=== PATIENT | female | born 1950 | race Caucasian/White ===

== ENCOUNTER 2022-04-07 10:42 | Day surgery (SDC) | payer OTHER ==
[~2022-04-07] VITALS: Ht 167.6 cm; Wt 63.2 kg
[~2022-04-07 10:42] MED LIST: ALLER-TEC D 5-1 EACH PO; ARTIFICIAL TEAR15 M2 TOP; GLUC500; IBUP800 PO; METR70GEL VAG; METRONIDAZOLE60 GM TP; Penlac6.6 ML TP; Prednisone20 MG PO; TURMERIC500 M2 PO
--- NOTE | 2022-04-07 12:29 | NUR ---
04/07/22 1229 Guero Garcia EPI 1MG/ML USED TO SOAK PLEDGETTS USED DURING CASE.
== END 2022-04-07 13:32 | disposition home or self-care (01) ==
LOC: ORSCSDS 10:42
PROVIDERS: Otolaryngology
PROC: 0CBM8ZX Excision of Pharynx, Via Natural or Artificial Opening Endoscopic, Diagnostic (ICD-10-PCS; principal; 2022-04-07 12:00)
PROC: 0CBR8ZX Excision of Epiglottis, Via Natural or Artificial Opening Endoscopic, Diagnostic (ICD-10-PCS; principal; 2022-04-07 12:00)
DX: J38.7 Other diseases of larynx (principal); G47.33 Obstructive sleep apnea (adult) (pediatric); Z87.891 Personal history of nicotine dependence; F41.9 Anxiety disorder, unspecified
CPT/HCPCS: 88304; J1100; J2250; J2370; J2405; J2704; J3010; J7120

== ENCOUNTER 2024-01-18 06:08 | Day surgery (SDC) | payer OTHER ==
[2024-01-18] VITALS (13 sets, daily range): BP systolic 107–136; BP diastolic 51–78
[~2024-01-18] VITALS: Ht 167.6 cm; Wt 63.0 kg
[~2024-01-18 06:08] MED LIST changes: +Estrace Vagin42.5 GM VAG; +FERROUS GLUCON324 M7 PO; +ROSACEA CREAM TOP
[2024-01-18] MEDS ORDERED: CeFAZolin Sodium 2,000 MG in NS 100 ML IV SCH (06:20)
[2024-01-18] MEDS ORDERED: Lactated Ringer's 1,000 ML IV SCH ×2 (06:20→09:05)
[2024-01-18] MEDS ORDERED: propofoL 20 ML IV ONE (06:56)
[2024-01-18] MEDS ORDERED: Lidocaine HCl 2% 20 ML MDV ONE (06:56)
[2024-01-18] MEDS ORDERED: FentaNYL Citrate 50 MCG/ML 2 ML Injection ONE (06:57)
[2024-01-18] MEDS ORDERED: Lidocaine HCl 1% 5 ML SYR INJ ONE (07:05)
[2024-01-18] MEDS ORDERED: FentaNYL Citrate 50 MCG/ML 2 ML Injection IV PRN ×2 (07:05→07:10)
[2024-01-18] MEDS ORDERED: Midazolam HCl 1MG / ML 2ML Vial IV ONE (07:05)
[2024-01-18] MEDS ORDERED: HYDROmorphone HCl/Pf 1MG SYR IV PRN ×2 (07:10→09:05)
[2024-01-18] MEDS ORDERED: Ondansetron HCl 2 MG / ML 2ML Vial IV PRN ×2 (07:10→09:05)
[2024-01-18] MEDS ORDERED: EpiNEPhrine 1 MG/1 ML 1ML Vial ONE (07:11)
[2024-01-18] MEDS ORDERED: Bupivacaine 0.5% HCl 5 MG/ML 30MLVIAL ONE (07:11)
[2024-01-18] MEDS ORDERED: Lidocaine 1%-Epineph 1:100000 20 ML MDV ONE (07:14)
[2024-01-18] MEDS ORDERED: ePHEDrine Sulfate 50 MG/ML 1ML Injection ONE (07:36)
[2024-01-18] MEDS ORDERED: Phenylephrine HCl 100 MCG/ML-NS 10MLSYR (1MG/10ML) ONE (07:36)
[2024-01-18] MEDS ORDERED: Dexamethasone Sod Phos 10 MG/ML 1ML VIAL ONE (07:44)
[2024-01-18] MEDS ORDERED: Ondansetron HCl 2 MG / ML 2ML Vial ONE (07:44)
[2024-01-18] MEDS ORDERED: Naloxone HCl 0.4MG / ML 1ML Vial IV PRN (09:00)
[2024-01-18] MEDS ORDERED: Metoclopramide HCl 5MG / ML 2ML Vial IV PRN (09:05)
[2024-01-18] MEDS ORDERED: Simethicone 80 MG Chew PO PRN (09:05)
[2024-01-18] MEDS ORDERED: Metoclopramide HCl 10 MG Tab PO PRN (09:05)
[2024-01-18] MEDS ORDERED: DiphenhydrAMINE HCL 25 MG Cap PO PRN (09:10)
[2024-01-18] MEDS ORDERED: OxyCODONE HCL 5 MG TAB PO PRN (09:10)
[2024-01-18] MEDS ORDERED: Acetaminophen 325 MG TABLET PO PRN (09:10)
[2024-01-18] MEDS ORDERED: Ondansetron 4 MG TAB PO PRN (09:10)
[2024-01-18] MEDS ORDERED: Ketorolac Tromethamine 15mg Vial IV PRN (09:15)
--- NOTE | 2024-01-18 09:45 | NUR ---
ARRIVAL TO SURGICAL UNIT VIA GOURNEY, EASILY STANDS TO TRANSFER TO HOSPITAL BED. SCANT BLOODY DRNG NOTED TO LINENS OF GOURNEY. PLEASANT, SOFT SPOKEN, & ORIENTED. K PAD TO BACK. ABD SOFT. LUNGS CLEAR. ESPINOZA IN PLACE, NO URINE IN BAG. DENIES N/V & DRINKS GIVEN; DECLINES SNACKS. DENIES PAIN & ONLY C/O ESPINOZA IRRIATING HER. DISCUSSED PLANS FOR ESPINOZA TO BE REMOVED 4 HOURS POST OP OR SOON IF ABLE TO COMFORTABLY AMBULATE. STATES UNDERSTANDING. SPOUSE TO ROOM.
[2024-01-18] MEDS ORDERED: Acetaminophen650 M1 PO (15:58)
--- NOTE | 2024-01-18 16:18 | NUR ---
DISCHARGE DENIES PAIN. VOIDING EASILY x 2, DRINKING & EATING, AMBULATING EASILY IN HALLWAYS. DR SIERRA INTO SEE HER. DC INSTRUCTIONS DISCUSSED. DECLINES WC OUT & AMBULATES OUT w/ SPOUSE.
== END 2024-01-18 16:21 | disposition home or self-care (01) ==
LOC: ORSCMMR 06:08 → ORD 07:30 → SURS 09:24 → ORSCMMR 16:21 → ORD 01-19 13:30
PROVIDERS: Obstetrics & Gynecology
PROC: 0JQC0ZZ Repair Pelvic Region Subcutaneous Tissue and Fascia, Open Approach (ICD-10-PCS; principal; 2024-01-18 07:30)
DX: N81.11 Cystocele, midline (principal); N81.6 Rectocele; N81.5 Vaginal enterocele; N95.2 Postmenopausal atrophic vaginitis; I73.00 Raynaud's syndrome without gangrene
CPT/HCPCS: A9270; J0171; J0690; J1100; J1170; J1885; J2250; J2371; J2405; J2704; J3010; J7120